=== PATIENT | male | born 1980 | race Caucasian/White ===

== ENCOUNTER → 2022-07-17 11:17 | Outpatient (CLI) | payer BC, SELFPAY ==
--- NOTE | ~2022-07-17 | MR_ITS ---
EXAMINATION: MR shoulder RT wo con DATE: 07/17/2022 12:11 INDICATION: Adhesive capsulitis of the right shoulder TECHNIQUE: Magnetic resonance imaging (MRI) of the right shoulder was performed without intravenous c ontrast. Sequences included axial PD-weighted FS FSE, coronal oblique PD-weighted FS FSE, coronal obl ique T2-weighted FS FSE, sagittal PD-weighted FS FSE, and sagittal T1-weighted SE. COMPARISON: None. FINDINGS: Coracoacromial arch: The acromion undersurface is curved in morphology (type II). The coracoacromial ligament is normal. M ild acromioclavicular osteoarthritis. Rotator cuff: Mild tendinopathy of the distal supraspinatus and infraspinatus tendons without discrete tear. The te res minor tendon is normal. Mild subscapularis tendinopathy without tear. Normal rotator cuff muscle bulk and signal. Biceps tendon, glenoid labrum and glenohumeral cartilage: Long head of the biceps tendon is normal. The glenoid labrum is normal. Diffuse mild partial-thicknes s cartilage loss along the glenoid with smooth chondral surface. Focal mild chondral swelling with li randolph fissuring and small focus of underlying cortical irregularity at the superomedial aspect of the humeral head. Fluid: Physiologic amount of fluid in the glenohumeral joint and biceps tendon sheath. No loose osteochondr al bodies. No abnormal increased fluid in the subacromial/subdeltoid bursa to suggest bursitis. Bones: Normal marrow signal with no edema, fracture or abnormal marrow replacing process. There is thickenin g of the capsule at the axillary recess which is a finding associated with adhesive capsulitis which is a clinical diagnosis. There is however no abnormal increased soft tissue replacing the normal T1 h yperintense fat signal at the rotator cuff is normal which can be an other finding of adhesive capsul itis. IMPRESSION: 1. Mild glenohumeral and acromioclavicular osteoarthritis. 2. Mild rotator cuff tendinopathy without tear. 3. Thickening of the capsule at the axillary recess which can be seen with adhesive capsulitis which is a clinical diagnosis. Reviewed, dictated and finalized at location A. [employer] IMPRESSION: 1. Mild glenohumeral and acromioclavicular osteoarthritis. 2. Mild rotator cuff tendinopathy without tear. 3. Thickening of the capsule at the axillary recess which can be seen with adhe sive capsulitis which is a clinical diagnosis.
== END ==
PROVIDERS: PCP Internal Medicine
DX: M75.01 Adhesive capsulitis of right shoulder (principal); M19.011 Primary osteoarthritis, right shoulder
CPT/HCPCS: 73221